=== PATIENT | male | born 2000 | race Caucasian/White ===

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

== ENCOUNTER 2020-08-16 00:15 | Emergency (ER) | payer MEDICARE ==
[~2020-08-16] VITALS: Ht 190.5 cm; Wt 95.5 kg
[2020-08-16 00:21] VITALS: BP 170/104; Ht 190.5 cm; Wt 95.5 kg
[2020-08-16] MEDS ORDERED: HYDROCODON-ACE1 EAC7 PO (01:05)
== END 2020-08-16 01:17 | disposition home or self-care (01) ==
LOC: D.ER 00:15
DX: S01.511A Laceration without foreign body of lip, initial encounter (principal); W50.0XXA Accidental hit or strike by another person, initial encounter; Y93.9 Activity, unspecified; Y92.9 Unspecified place or not applicable